=== PATIENT | male | born 1945 | race Caucasian/White ===

== ENCOUNTER 2018-10-09 06:21 | Inpatient (IN) | payer MEDICARE ==
[~2018-10-09] VITALS: Ht 177.8 cm; Wt 127.0 kg
--- NOTE | 2018-10-09 06:47 | EKG ---
[address] [address] Test Date: 2018-10-09 Test Time: 06:40:19 Pat Name: MIHAI SHAH Department: Room: Gender: M Supervisor Lending Activities: : 1945 Requested By: TREVOR KELLER Order Number: [id number] Reading MD: Measurements Intervals [place] Rate: 76 P: 63 UT: 206 QRS: 8 QRSD: 100 T: 29 QT: 376 QTc: 422 Interpretive Statements SINUS RHYTHM NORMAL ECG RI6.01 Unconfirmed report No previous ECG available for comparison
--- NOTE | 2018-10-09 06:51 | RAD ---
Examination: Single frontal view of the chest HISTORY: History of fall, shortness of breath FINDINGS: The cardiomediastinal silhouette grossly appears unremarkable. There is no acute infiltrate or visualized pneumothorax identified. IMPRESSION: No acute cardiopulmonary findings. Electronically signed by: Harry Leary MD (10/09/2018 6:47 AM) [facility]
[2018-10-09] MEDS ORDERED: IPRATRPIUM/ALBUTEROL 0.5/2.5MG 3 ML NEBU. NEB ONE (07:00)
--- NOTE | 2018-10-09 07:01 | PHYS DOC ---
Adult General Chief Complaint Chief Complaint: fall HPI HPI 73-year-old male presents via EMS for fall at home. The patient got up to go the restroom and was doing okay until he was on his way back to bed. He states that his legs "just gave out". Partially caught himself with his arms on the way down. He denies hitting his head or losing consciousness. Patient admits that he was feeling some increased shortness of breath prior to falling. The patient wears CPAP at night. He used to be a smoker and has been diagnosed with COPD. He only uses an albuterol inhaler PRN. When EMS arrived he was 94% on room air. His blood sugar was in the 180s. The patient's temperature however was greater than 101. The patient states that he has been feeling ill the past 2 days with a productive cough of yellowish sputum. He currently has some low back discomfort from the fall, but denies any other pain. Review of Systems Review of Systems Constitutional: Fever[] Eyes: Denies change in visual acuity, redness, or eye pain [] HENT: Denies nasal congestion or sore throat [] Respiratory: Productive cough with shortness of breath [] Cardiovascular: No additional information not addressed in HPI [] GI: Denies abdominal pain, nausea, vomiting, bloody stools or diarrhea [] : Denies dysuria or hematuria [] Musculoskeletal: Chronic back pain [] Integument: Denies rash or skin lesions [] Neurologic: Denies headache, focal weakness or sensory changes [] Endocrine: Denies polyuria or polydipsia [] All other systems were reviewed and found to be within normal limits, except as documented in this note. Physical Exam Physical Exam Constitutional: Well developed, well nourished, no acute distress, non-toxic appearance. [] HENT: Normocephalic, atraumatic, bilateral external ears normal, oropharynx moist, no oral exudates, nose normal. [] Eyes: PERRLA, EOMI, conjunctiva normal, no discharge. [] Neck: Normal range of motion, no tenderness, supple, no stridor. [] Cardiovascular:Heart rate regular rhythm, no murmur [] Lungs & Thorax: Bilateral breath sounds with expiratory wheezing. Right base diminished greater than left.[] Abdomen: Bowel sounds normal, soft, no tenderness, no masses, no pulsatile masses. [] Skin: Warm, dry, no erythema, no rash. [] Back: No tenderness, no CVA tenderness. [] Extremities: No tenderness, no cyanosis, no clubbing, ROM intact, no edema. [] Neurologic: Alert and oriented X 3, normal motor function, normal sensory function, no focal deficits noted. [] Psychologic: Affect normal, judgement normal, mood normal. [] EKG EKG Sinus rhythm, rate 76, normal axis, no ST elevations or depressions.[] Radiology/Procedures Radiology/Procedures [] Impressions: Exam performed: CT scan of the head without contrast. Date of Service: 10/09/2018. Comparison: None available Clinical History: Weakness and fall. Technique: Helical acquisitions are obtained from the foramen magnum to the vertex without intravenous administration of contrast. Findings: The ventricles are midline without evidence of dilatation. There is mild age-related atrophy. Normal amezcua-white differentiation is maintained. There is no extra axial fluid collection, intraparenchymal hemorrhage or mass lesion. The visualized portions of the orbits, paranasal sinuses and the mastoid air cells appear clear. The calvarium is intact. Impression: 1. No acute intracranial process detected. RS Compliance Statement: One or more of the following individualized dose reduction techniques were utilized for this examination: 1. Automated exposure control 2. Adjustment of the mA and/or kV according to patient size 3. Use of iterative reconstruction technique Electronically signed by: Jennifer Gomez MD (10/09/2018 8:48 AM) [facility] DICTATED AND SIGNED BY: JENNIFER GOMEZ MD DATE: 10/09/18 0847 CC: TREVOR KELLER DO; NON,STAFF ~ Examination: Single frontal view of the chest HISTORY: History of fall, shortness of breath FINDINGS: The cardiomediastinal silhouette grossly appears unremarkable. There is no acute infiltrate or visualized pneumothorax identified. IMPRESSION: No acute cardiopulmonary findings. Electronically signed by: Harry Leary MD (10/09/2018 6:47 AM) [facility] DICTATED AND SIGNED BY: HARRY LEARY MD DATE: 10/09/18 0645 CC: TREVOR KELLER DO; NON,STAFF Course & Med Decision Making Course & Med Decision Making Pertinent Labs and Imaging studies reviewed. (See chart for details) On arrival the patient's heart rate is 95, his blood pressure is 161/84, his O2 sat 96%, his respirations are 18. The patient has a white count of 19. His rapid flu is negative. His chest x-ray does not show pneumonia however I am still suspicious for pneumonia as the cause. The patient does meet sepsis criteria. I will order 2 g of Rocephin and 500 mg of azithromycin. Urinalysis is pending. Blood cultures and lactic acid were ordered. I have given him a DuoNeb treatment, 1L NS, 4 mg of morphine, and 4 mg of Zofran IV. A total of 2 L normal saline has been ordered. Lactic acid is 2.3. The patient has been having increased periods of poor memory as well as some episodes of arm weakness lately. Head CT was ordered. Head CT without contrast did not show any acute findings. Urinalysis is negative for infection. I will continue with my presumed diagnosis of early pneumonia. I have discussed the case with Dr. Valentine and he has accepted the patient for admission. Repeat lactic acid is pending. Greater than 35 minutes of critical care time was spent on this patient exclusive of other billable procedures. [] Dragon Disclaimer Dragon Disclaimer This electronic medical record was generated, in whole or in part, using a voice recognition dictation system. Departure Departure: Impression: Primary Impression: Sepsis due to pneumonia Additional Impressions: Community acquired bacterial pneumonia Fall Diabetes Lumbar back pain Disposition: ADMITTED INPATIENT Admitting Physician: Gonsalo Valentine Condition: STABLE Problem Qualifiers Additional Impressions: Fall Encounter type: initial encounter Qualified Codes: W19.XXXA - Unspecified fall, initial encounter Diabetes Diabetes mellitus type: type 2 Diabetes mellitus penitentiary insulin use: without predatory animal exterminator use Diabetes mellitus complication status: with kidney complications Diabetes mellitus complication detail: with chronic kidney disease Chronic kidney disease stage: stage 3 (moderate) Qualified Codes: E11.22 - Type 2 diabetes mellitus with diabetic chronic kidney disease; N18.3 - Chronic kidney disease, stage 3 (moderate) TREVOR KELLER DO Oct 09, 2018 07:01
[2018-10-09] MEDS ORDERED: ACETAMINOPHEN 500 MG TABLET PO ONE ×2 (07:09→07:15)
[2018-10-09 07:18] LABS: BASO # 0.1 x10^3/uL (0.0-0.2); BASO % 0 % (0-3); EOS % 0 % (0-3); HEMATOCRIT 41.4 % (39.0-53.0); LYMPH # 1.4 x10^3/uL (1.0-4.8); LYMPH % 7 % (24-48); MEAN CORPUSCULAR HEMOGLOBIN 30 pg (25-35); MEAN CORPUSCULAR HGB CONC 34 g/dL (31-37); MEAN CORPUSCULAR VOLUME 88 fL (79-100); MONO # 1.5 x10^3/uL (0.0-1.1); MONO % 8 % (0-9); NEUT % 84 % (31-73); PLATELET COUNT 133 x10^3/uL (140-400); RED CELL DISTRIBUTION WIDTH 14.3 % (11.5-14.5)
[2018-10-09 07:32] LABS: INFLUENZA A PATIENT NEGATIVE (NEGATIVE); INFLUENZA B PATIENT NEGATIVE (NEGATIVE)
[2018-10-09] MEDS ORDERED: IV NORMAL SALINE 1,000ML 1,000 ML IV ONE ×2 (07:45→08:00)
[2018-10-09 07:47] LABS: ALBUMIN 3.6 g/dL (3.4-5.0); ALBUMIN/GLOBULIN RATIO 0.9 (1.0-1.7); CREATININE 1.7 mg/dL (0.7-1.3); GFR 39.5; POTASSIUM 3.8 mmol/L (3.5-5.1); TOTAL BILIRUBIN 0.9 mg/dL (0.2-1.0); TOTAL PROTEIN 7.5 g/dL (6.4-8.2)
[2018-10-09] MEDS ORDERED: IV NORMAL SALINE 250ML 250 ML ONE (07:58)
[2018-10-09] MEDS ORDERED: AZITHROMYCIN 500 MG VIAL. IV ONE (07:58)
[2018-10-09] MEDS ORDERED: IV NORMAL SALINE 100ML 100 ML ONE (07:58)
[2018-10-09 08:00] LABS: % BANDS 16 % (0-9); % BASOS 0 % (0-3); % EOS 0 % (0-5); % LYMPHS 8 % (24-48); % MONOS 6 % (0-10); % SEGS 70 % (35-66); PLATELET CLUMP PRESENT; PLT ESTIMATE DECREASED (ADEQUATE); TOXIC VACUOLATION PRESENT
[2018-10-09] MEDS ORDERED: ONDANSETRON PF 4 MG/2 ML VIAL. IV ONE (08:00)
[2018-10-09] MEDS ORDERED: MORPHINE SULFATE 4 MG/ML DISP.SYRIN. IV ONE (08:00)
[2018-10-09] MEDS ORDERED: AZITHROMYCIN 500 MG in IV NORMAL SALINE 250ML 250 ML IV ONE (08:00)
--- NOTE | 2018-10-09 08:52 | RAD ---
Exam performed: CT scan of the head without contrast. Date of Service: 10/09/2018. Comparison: None available Clinical History: Weakness and fall. Technique: Helical acquisitions are obtained from the foramen magnum to the vertex without intravenous administration of contrast. Findings: The ventricles are midline without evidence of dilatation. There is mild age-related atrophy. Normal amezcua-white differentiation is maintained. There is no extra axial fluid collection, intraparenchymal hemorrhage or mass lesion. The visualized portions of the orbits, paranasal sinuses and the mastoid air cells appear clear. The calvarium is intact. Impression: 1. No acute intracranial process detected. PQRS Compliance Statement: One or more of the following individualized dose reduction techniques were utilized for this examination: 1. Automated exposure control 2. Adjustment of the mA and/or kV according to patient size 3. Use of iterative reconstruction technique Electronically signed by: Jennifer Gomez MD (10/09/2018 8:48 AM) [facility]
[2018-10-09 09:00] LABS: CLARITY,URINE CLEAR; COLOR,URINE AMBER
[2018-10-09 09:01] LABS: BACTERIA,URINE 0 /HPF (0-FEW); BILIRUBIN,URINE NEG (NEG); GLUCOSE,URINE 100 mg/dL (NEG); NITRITE,URINE NEG (NEG); RBC,URINE 0 /HPF (0-2); UROBILINOGEN,URINE 1 mg/dL (0.2 mg/dL); WBC,URINE OCC /HPF (0-4)
[2018-10-09] MEDS ORDERED: HYDROmorphone PF 1 MG/ML DISP.SYRIN IV ONE (09:15)
[2018-10-09] MEDS ORDERED: HYDROmorphone PF 1 MG/ML DISP.SYRIN IV PRN (09:30)
[2018-10-09] MEDS ORDERED: ONDANSETRON PF 4 MG/2 ML VIAL. IV PRN (09:30)
[2018-10-09] MEDS: IPRATRPIUM/ALBUTEROL 0.5/2.5MG 3 ML NEBU. NEB SCH ×3 (10:29→20:41)
[2018-10-09] MEDS ORDERED: CLOT15CR5 TP (10:52)
[2018-10-09] MEDS ORDERED: TRAZ-86 PO (10:52)
[2018-10-09] MEDS ORDERED: CYAN10005 PO (10:52)
[2018-10-09] MEDS ORDERED: CETI10TA16 PO (10:52)
[2018-10-09] MEDS ORDERED: AMLO10TA6 PO (10:52)
[2018-10-09] MEDS ORDERED: FISH12002 PO (10:52)
[2018-10-09] MEDS ORDERED: CHOL10003 PO (10:52)
[2018-10-09] MEDS ORDERED: ASPI-630 PO (10:52)
[2018-10-09] MEDS ORDERED: TRAZ-85 PO (10:52)
[2018-10-09] MEDS ORDERED: GABA600T2 PO (10:52)
[2018-10-09] MEDS ORDERED: DONE10TA7 PO (10:52)
[2018-10-09] MEDS ORDERED: SIMV20TA3 PO (10:52)
[2018-10-09] MEDS ORDERED: INSU100I13 SQ (10:56)
[2018-10-09] MEDS ORDERED: LISI1TAB7 PO (11:03)
[2018-10-09 11:13] VITALS: BP 151/81
[2018-10-09] MEDS ORDERED: DEXTROSE 50% 25 GM / 50ML DISP.SYRIN. IV PRN (11:15)
[2018-10-09] MEDS: INSULIN LISPRO 300 UNITS/3 ML INSULN.PEN. SQ SCH ×2 (12:00→17:00)
[2018-10-09 13:30] LABS: BGAS PH 7.42 (7.35-7.46)
[2018-10-09] MEDS ORDERED: traZODone 50 MG TABLET. PO PRN (13:30)
[2018-10-09] MEDS: amLODIPine BESYLATE 10 MG TABLET PO SCH (13:31)
[2018-10-09] MEDS: SIMVASTATIN 20 MG TABLET PO SCH (13:31)
[2018-10-09] MEDS: ASPIRIN 81 MG TAB.CHEW PO SCH (13:31)
[2018-10-09] MEDS: CHOLECALCIFEROL (VITAMIN D3) 1,000 UNIT TABLET PO SCH (13:32)
[2018-10-09] MEDS: DONEPEZIL HCL 10 MG TABLET PO SCH (13:32)
[2018-10-09] MEDS: CETIRIZINE HCL 10 MG TABLET PO SCH (13:32)
[2018-10-09] MEDS: CYANOCOBALAMIN (VITAMIN B-12) 1,000 MCG TABLET. PO SCH (13:32)
[2018-10-09] MEDS ORDERED: ALBUTEROL SULFATE 2.5 MG/3 ML NEBU. NEB PRN (13:45)
[2018-10-09] MEDS: LISINOPRIL 20 MG TABLET PO SCH (14:00)
[2018-10-09] MEDS: hydroCHLOROthiazide 25 MG TABLET PO SCH (14:00)
[2018-10-09 17:51] VITALS: BP 156/74
[2018-10-09 20:02] VITALS: BP 152/67
[2018-10-09] MEDS: OMEGA-3 FATTY ACIDS/FISH OIL 1,000 MG CAPSULE. PO SCH (20:07)
[2018-10-09] MEDS: GABAPENTIN 300 MG CAPSULE. PO SCH (20:07)
[2018-10-09] MEDS: traZODone 100 MG TABLET. PO SCH (20:07)
[2018-10-09] MEDS: CLOTRIMAZOLE/BETAMETH 1%-0.05% TOPICAL CREAM 15GM TUBE. TP SCH (20:08)
[2018-10-09] MEDS: INSULIN GLARGINE 300 UNITS/3 ML INSULN.PEN. SQ SCH ×2 (20:13→21:00)
[2018-10-09 22:44] VITALS: BP 169/81
--- NOTE | 2018-10-10 01:16 | HP ---
ADMIT DATE: 10/09/2018 HISTORY OF PRESENT ILLNESS: The patient is a 73-year-old male patient who was brought to the Emergency Room by emergency medical service personnel after he fell at home, he got up to the restroom and was doing okay until he was on his way back to the bed and he stated that his legs just gave out, but he partially caught himself with his arms on the way down. He denied hitting his head or losing consciousness. The patient admits that he was not feeling well with increasing shortness of breath. He has also had a fever up to 101. His said that he gets the bronchitis every year and he also complained of having cough that was brownish and yellowish in color. He did complain of some low back discomfort from the fall, but denies any other pain. He was extensively investigated in the Emergency Room. He has had a CT scan of the head, which showed no intracranial process detected. His chest x-ray showed no acute cardiopulmonary finding; however, he was found to have a lactic acidosis and leukocytosis with a white cell count of 19,000 and therefore, the patient was admitted with diagnoses of probably acute bronchitis versus community-acquired pneumonia as well as COPD exacerbation. PAST MEDICAL HISTORY: Significant for COPD; morbid obesity; obstructive sleep apnea, on CPAP; type 2 diabetes, hypertension, hyperlipidemia, chronic kidney disease stage 3. He is known to have gout. He has also severe sensorineural deafness, for which he has also hearing aids. PAST SURGICAL HISTORY: Significant for bilateral cataract extraction, cholecystectomy, rotator cuff tear repair on both sides. He has ganglion cyst removing from his left wrist. He has also hernia repair, esophagogastroduodenoscopy, and colonoscopy. ALLERGIES: He has no known drug allergies. MEDICATIONS: He is currently on following medications: He is on cetirizine 10 mg once a day, Aricept 10 mg once a day, simvastatin 20 mg at bedtime, amlodipine 10 mg daily. He is on lisinopril/hydrochlorothiazide 20/25 two tablets daily, aspirin 81 mg once a day, gabapentin 600 mg p.o. at bedtime, trazodone 100 mg p.o. at bedtime, trazodone 50 mg p.r.n. for insomnia. He is on Lantus 90 units subcutaneously twice a day, clotrimazole for betamethasone apply topically twice a day. He is on cyanocobalamin 1000 mcg tablet daily. He is on cholecalciferol 1000 international unit once a day, and fish oil for omega 3 fatty acids 1200 mg twice a day. FAMILY HISTORY: He has 1 brother and 1 sister. His brother is older and has diabetes and heart problems. His sister apparently is healthy. His father in his 80s because of myocardial infarction. Mother in her 90s because of Alzheimer disease. SOCIAL HISTORY: He is , has 1 daughter. He quit smoking 30 years ago. He drinks alcohol occasionally. 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 REVIEW OF SYSTEMS: The patient has bilateral cataract extraction, but denied any glaucoma or macular degeneration. Denied any earache or tinnitus, but he is known to have sensorineural deafness. He has bilateral hearing aid. Denied any stuffy nose, nosebleed, or postnasal drip. Denied any sore throat, sore tongue, toothache, hoarseness of voice, or difficulty swallowing. He denied any nausea, vomiting, diarrhea, or constipation. Denied any hematemesis, melena, or hematochezia. Denied any dysuria, frequency, or hematuria. Denied any chest pain. He did complain of shortness of breath with cough with a yellowish to brownish sputum. He did complain of fever and his said that he was having shaking chills. Denied any dizziness, lightheadedness, or vertigo. Denied any palpitation. PHYSICAL EXAMINATION: GENERAL: When arrival to the Emergency Room, the patient looked well and was clearly in no apparent respiratory distress. There is no pallor, jaundice, cyanosis, or thyromegaly. No jugular venous distension. No lower limb edema. VITAL SIGNS: His heart rate was 74, blood pressure was 178/69, temperature was 99, respiratory rate was 20, and oxygen saturation was 95% on room air. HEAD, EYES, EARS, NOSE AND THROAT: Showed normocephalic, atraumatic. NECK: Supple. HEART: Showed normal first and second heart sounds. No gallop, rub, or murmur. CHEST: Shows central trachea, equal bilateral expansion, air entry, scattered rhonchi. I could not really appreciate any crepitation. ABDOMEN: Distended, soft, nontender. No guarding or rigidity. No organomegaly. All hernial orifices intact. The bowel sounds normal. NEUROLOGIC: He was awake, alert, responding appropriately. All cranial nerves are intact. He moves extremities without difficulty. He ambulates with a cane at home. LABORATORY DATA AND IMAGING: His lab work on arrival showed a white cell count of 19,000, hemoglobin 14, hematocrit 41, MCV 88 and platelet count of 133,000. His serum sodium was 136, potassium 3.8, chloride 99, bicarbonate 26, anion gap of 11, BUN 22, creatinine 1.7, estimated GFR was 39 mL per minute. His glucose was ____, calcium was 9. Total bilirubin, AST, ALT, alkaline phosphatase were normal. Total protein was 7.5, albumin was 3.6. His urinalysis showed the urine was paco, clear with a pH of 6.5, specific gravity of 1.025. There was small amount of protein, small amount of glucose, trace of ketones, large amount of blood, negative for nitrite and leukocyte esterase, 0 rbc's, occasional wbc's, and no bacteria. His influenza A and B were negative. He apparently had a CT scan of the head that showed the ventricles are midline without evidence of dilatation. There is mild age-related atrophy. Normal amezcua-white differentiation is maintained. There is no extraaxial fluid collection, intraparenchymal hemorrhage, or mass lesion. The visualized portion of the orbits, paranasal sinuses and mastoid air cells appears clear. The calvarium is intact. No acute intracranial process detected. His chest x-ray showed that the cardiomediastinal silhouette grossly appears unremarkable. There is no acute infiltrate or visualized pneumothorax identified. ASSESSMENT AND PLAN: In summary, this is a 73-year-old male patient who is known to have chronic obstructive pulmonary disease with morbid obesity, and obstructive sleep apnea who came in with a fall. He has also had fever, shaking chills, cough with yellowish sputum, and was admitted with acute bronchitis/acute community-acquired pneumonia. He is now on IV Rocephin and Zithromax. We will continue with all his other medications. Continue with IV antibiotic. I will check his blood gases to make sure that he is not retaining carbon dioxide and we will decide further management accordingly. MAGY LAGUNAS MD DR: Andres JOB#: [id number] / [id number]
[2018-10-10 05:16] VITALS: BP 133/72
[2018-10-10] MEDS: ACETAMINOPHEN 500 MG TABLET PO PRN ×2 (05:16→15:12)
[2018-10-10] MEDS: IPRATRPIUM/ALBUTEROL 0.5/2.5MG 3 ML NEBU. NEB SCH ×4 (05:46→20:12)
[2018-10-10 07:05] LABS: BASO # 0.1 x10^3/uL (0.0-0.2); BASO % 1 % (0-3); EOS % 0 % (0-3); HEMATOCRIT 38.9 % (39.0-53.0); HEMOGLOBIN 13.2 g/dL (13.0-17.5); LYMPH # 2.2 x10^3/uL (1.0-4.8); LYMPH % 17 % (24-48); MEAN CORPUSCULAR HEMOGLOBIN 30 pg (25-35); MEAN CORPUSCULAR HGB CONC 34 g/dL (31-37); MEAN CORPUSCULAR VOLUME 89 fL (79-100); MONO % 8 % (0-9); NEUT % 75 % (31-73); PLATELET COUNT 126 x10^3/uL (140-400); RED BLOOD COUNT 4.37 x10^6/uL (4.30-5.70); RED CELL DISTRIBUTION WIDTH 14.8 % (11.5-14.5); WHITE BLOOD COUNT 13.4 x10^3/uL (4.0-11.0)
[2018-10-10 07:22] LABS: ALBUMIN/GLOBULIN RATIO 0.7 (1.0-1.7); CALCIUM 8.7 mg/dL (8.5-10.1); CREATININE 1.7 mg/dL (0.7-1.3); GFR 39.5; POTASSIUM 3.5 mmol/L (3.5-5.1); TOTAL BILIRUBIN 0.6 mg/dL (0.2-1.0); TOTAL PROTEIN 7.1 g/dL (6.4-8.2)
[2018-10-10] MEDS: INSULIN LISPRO 300 UNITS/3 ML INSULN.PEN. SQ SCH ×3 (08:00→17:00)
[2018-10-10] MEDS: SIMVASTATIN 20 MG TABLET PO SCH (09:11)
[2018-10-10] MEDS: amLODIPine BESYLATE 10 MG TABLET PO SCH (09:12)
[2018-10-10] MEDS: LISINOPRIL 20 MG TABLET PO SCH (09:12)
[2018-10-10] MEDS: CETIRIZINE HCL 10 MG TABLET PO SCH (09:13)
[2018-10-10] MEDS: DONEPEZIL HCL 10 MG TABLET PO SCH (09:13)
[2018-10-10] MEDS: OMEGA-3 FATTY ACIDS/FISH OIL 1,000 MG CAPSULE. PO SCH ×2 (09:14→23:52)
[2018-10-10] MEDS: CYANOCOBALAMIN (VITAMIN B-12) 1,000 MCG TABLET. PO SCH (09:15)
[2018-10-10] MEDS: ASPIRIN 81 MG TAB.CHEW PO SCH (09:15)
[2018-10-10] MEDS: CHOLECALCIFEROL (VITAMIN D3) 1,000 UNIT TABLET PO SCH (09:15)
[2018-10-10] MEDS: hydroCHLOROthiazide 25 MG TABLET PO SCH (09:15)
[2018-10-10] MEDS: CLOTRIMAZOLE/BETAMETH 1%-0.05% TOPICAL CREAM 15GM TUBE. TP SCH ×2 (09:16→21:00)
[2018-10-10] MEDS: INSULIN GLARGINE 300 UNITS/3 ML INSULN.PEN. SQ SCH (09:20)
[2018-10-10 11:21] VITALS: BP 149/77
[2018-10-10 15:17] VITALS: BP 144/70
[2018-10-10] MEDS ORDERED: AZITHROMYCIN 500 MG in IV NORMAL SALINE 250ML 250 ML IV ONE (16:00)
[2018-10-10] MEDS: ENOXAPARIN 40 MG/0.4 ML SYRINGE. SQ SCH (16:02)
--- NOTE | 2018-10-10 18:06 | PN ---
DATE: 10/10/2018 SUBJECTIVE: The patient is resting, slightly propped up in bed, in no apparent respiratory distress. He continued to have cough that is productive of a thick whitish sputum. He did spike a temperature up to 102.3 and we did send sputum as well as blood for culture and sensitivity, the result of which is still pending at the time of this dictation. His chest x-ray did not show any acute cardiopulmonary finding. However, we continued him on IV antibiotics, IV steroids, continued on inhalers. PHYSICAL EXAMINATION: GENERAL: When I examined him this afternoon, he looked well and was clearly in no apparent respiratory distress. No pallor, jaundice, cyanosis, or thyromegaly. No jugular venous distension. No lower limb edema. VITAL SIGNS: His heart rate was 74, blood pressure 149/77, temperature was 98.6, respiratory rate was 22, and oxygen saturation was 95% on room air. HEAD, EYES, EARS, NOSE AND THROAT: Normocephalic, atraumatic. NECK: Supple. HEART: Showed normal first and second heart sounds. No gallop, rub, or murmur. CHEST: Shows central trachea, equally reduced expansion, reduced air entry, vesicular breath sounds. I could not appreciate any crepitation or rhonchi. ABDOMEN: Distended, soft, nontender. NEUROLOGIC: He is awake, alert, responding appropriately. All his cranial nerves are intact. He moves his extremities without difficulty. However, the patient is very weak and unable to ambulate. His intake was 2750, output was 1000. LABORATORY DATA: His lab work this morning showed the white cell count is down to 13,400, hemoglobin 13, hematocrit 39, MCV 89 and platelet count of 126,000. His chemistry showed a serum sodium 137, potassium 3.5, chloride 102, bicarbonate 24, anion gap of 11, BUN 22, creatinine 1.7, estimated GFR was 39 mL per minute. Glucose was 174, calcium was 8.7. Total bilirubin, AST, ALT, alkaline phosphatase were normal. Total protein was 7.1, albumin 3. His blood gases showed a pH of 7.42, pCO2 of 37, pO2 of 96, bicarbonate 24, and oxygen saturation was 98% on FiO2 28%. His influenza A and B were negative. Urinalysis was essentially unremarkable. ASSESSMENT: The patient was admitted with acute bronchitis, acute community-acquired pneumonia, chronic obstructive pulmonary disease exacerbation. He has also morbid obesity, obstructive sleep apnea. Other medical problems include type 2 diabetes, hypertension, hyperlipidemia, chronic kidney disease. He is also known to have gout and severe sensorineural deafness, for which he also uses hearing aids. PLAN: My plan is to continue with IV Rocephin, IV Zithromax and I will add also Solu-Medrol and we will start him also on IV Lovenox for DVT prophylaxis and get also PT and OT. MAGY LAGUNAS MD DR: JOSE/valdez JOB#: [id number] / [id number]
--- NOTE | 2018-10-10 18:10 | EKG ---
[address] [address] Test Date: 2018-10-09 Test Time: 06:40:19 Pat Name: MIHAI SHAH Department: Room: 123 A Gender: M Shake Table Operator: : 1945 Requested By: MAGY LAGUNAS Order Number: [id number] Reading MD: Measurements Intervals [place] Rate: 76 P: 63 [place]: 206 QRS: 8 QRSD: 100 T: 29 QT: 376 QTc: 422 Interpretive Statements SINUS RHYTHM NORMAL ECG RI6.01 Unconfirmed report No previous ECG available for comparison
[2018-10-10 19:52] VITALS: BP 116/67
[2018-10-10 23:14] VITALS: BP 119/61
[2018-10-10] MEDS: methylPREDNISolone SOD SUCC PF 40 MG/ML VIAL. IV SCH (23:52)
[2018-10-10] MEDS: GABAPENTIN 300 MG CAPSULE. PO SCH (23:52)
[2018-10-10] MEDS: traZODone 100 MG TABLET. PO SCH (23:53)
[2018-10-10] MEDS: LACTOBACILLUS RHAMNOSUS GG 1 CAPSULE. PO SCH (23:53)
[2018-10-10] MEDS: MONTELUKAST 10 MG TABLET. PO SCH (23:53)
[2018-10-11] MEDS: INSULIN GLARGINE 300 UNITS/3 ML INSULN.PEN. SQ SCH ×3 (00:02→21:08)
[2018-10-11 05:11] VITALS: BP 127/58
[2018-10-11] MEDS: IPRATRPIUM/ALBUTEROL 0.5/2.5MG 3 ML NEBU. NEB SCH ×4 (05:33→19:55)
[2018-10-11 06:58] LABS: BASO % 0 % (0-3); EOS % 0 % (0-3); HEMOGLOBIN 12.9 g/dL (13.0-17.5); LYMPH # 1.4 x10^3/uL (1.0-4.8); LYMPH % 14 % (24-48); MEAN CORPUSCULAR HEMOGLOBIN 30 pg (25-35); MEAN CORPUSCULAR HGB CONC 34 g/dL (31-37); MEAN CORPUSCULAR VOLUME 90 fL (79-100); MONO # 0.3 x10^3/uL (0.0-1.1); MONO % 3 % (0-9); NEUT # 8.2 x10^3uL (1.8-7.7); NEUT % 83 % (31-73); PLATELET COUNT 127 x10^3/uL (140-400); RED BLOOD COUNT 4.23 x10^6/uL (4.30-5.70); RED CELL DISTRIBUTION WIDTH 14.4 % (11.5-14.5); WHITE BLOOD COUNT 9.9 x10^3/uL (4.0-11.0)
[2018-10-11 07:27] LABS: ALBUMIN 2.7 g/dL (3.4-5.0); ALBUMIN/GLOBULIN RATIO 0.6 (1.0-1.7); CALCIUM 8.7 mg/dL (8.5-10.1); GFR 32.7; TOTAL BILIRUBIN 0.6 mg/dL (0.2-1.0); TOTAL PROTEIN 7.1 g/dL (6.4-8.2)
[2018-10-11] MEDS: CETIRIZINE HCL 10 MG TABLET PO SCH (07:50)
[2018-10-11] MEDS: amLODIPine BESYLATE 10 MG TABLET PO SCH (07:50)
[2018-10-11] MEDS: hydroCHLOROthiazide 25 MG TABLET PO SCH (07:50)
[2018-10-11] MEDS: methylPREDNISolone SOD SUCC PF 40 MG/ML VIAL. IV SCH ×2 (07:50→23:30)
[2018-10-11] MEDS: LACTOBACILLUS RHAMNOSUS GG 1 CAPSULE. PO SCH ×2 (07:50→20:54)
[2018-10-11] MEDS: ASPIRIN 81 MG TAB.CHEW PO SCH (07:50)
[2018-10-11] MEDS: CYANOCOBALAMIN (VITAMIN B-12) 1,000 MCG TABLET. PO SCH (07:51)
[2018-10-11] MEDS: OMEGA-3 FATTY ACIDS/FISH OIL 1,000 MG CAPSULE. PO SCH ×2 (07:51→20:54)
[2018-10-11] MEDS: DONEPEZIL HCL 10 MG TABLET PO SCH (07:51)
[2018-10-11] MEDS: LISINOPRIL 20 MG TABLET PO SCH (07:51)
[2018-10-11] MEDS: SIMVASTATIN 20 MG TABLET PO SCH (07:52)
[2018-10-11] MEDS: CLOTRIMAZOLE/BETAMETH 1%-0.05% TOPICAL CREAM 15GM TUBE. TP SCH ×2 (07:52→20:50)
[2018-10-11] MEDS: CHOLECALCIFEROL (VITAMIN D3) 1,000 UNIT TABLET PO SCH (07:52)
[2018-10-11] MEDS: INSULIN LISPRO 300 UNITS/3 ML INSULN.PEN. SQ SCH ×3 (07:54→17:21)
[2018-10-11 11:06] VITALS: BP 111/62
[2018-10-11] MEDS: ENOXAPARIN 40 MG/0.4 ML SYRINGE. SQ SCH (15:15)
[2018-10-11 16:10] VITALS: BP 130/67
--- NOTE | 2018-10-11 19:09 | PN ---
DATE: 10/11/2018 SUBJECTIVE: The patient is resting, slightly propped up in bed, no apparent distress. He is definitely more awake, alert, said that he is feeling much better and he has been up and about, walked with physical therapy, continued to have cough and some shortness of breath. OBJECTIVE: GENERAL: When I examined him, he looked slightly pale, but no jaundice, cyanosis, or thyromegaly. No jugular venous distension. No limb edema. VITAL SIGNS: His heart rate was 68, blood pressure was 111/62, temperature was 97.7, respiratory rate 22, and oxygen saturation was 94%. HEAD, EYES, EARS, NOSE, AND THROAT: Normocephalic, atraumatic. NECK: Supple. HEART: Showed normal first and second sounds. No gallop, rub, or murmur. CHEST: Clear to auscultation. No crepitation or rhonchi. ABDOMEN: Distended, soft, nontender. NEUROLOGIC: He is definitely more awake, alert, responding appropriately. Cranial nerves intact. He moves extremities without difficulty. His intake over the last 24 hours was 2750, output was 1000. LABORATORY DATA: As of this morning showed a white cell count 9900, hemoglobin 13, hematocrit 38, MCV 90, and platelet count of 127,000. Serum sodium 135, potassium 4, chloride 100, bicarbonate 27, anion gap of 8, BUN 27, creatinine 2, estimated GFR was mL per minute. His glucose 169, calcium was 8.7. Total bilirubin, AST, ALT, alkaline phosphatase were normal. Total protein was 7.1, albumin 2.7. Urinalysis is unremarkable. His influenza A and B were negative. His sputum culture has so far showed few gram-positive rods and rare gram-negative rods. His blood culture is so far negative. ASSESSMENT: 1. Acute bronchitis versus community-acquired pneumonia. 2. Chronic obstructive pulmonary disease exacerbation. 3. Morbid obesity, obstructive sleep apnea. 4, Other medical problems include; A. Type 2 diabetes. B. Hypertension. C. Hyperlipidemia. D. Chronic kidney disease. He also known to have gout and severe sensorineural deafness. PLAN: My plan is to continue with IV Rocephin and Zithromax. Continue with Lovenox for DVT prophylaxis. Continue with PT, OT. I will add Flomax and we will hopefully attempt to remove the Conrad catheter tomorrow. MAGY LAGUNAS MD DR: JOSE/valdez JOB#: [id number] / [id number]
[2018-10-11] MEDS: traZODone 100 MG TABLET. PO SCH (20:54)
[2018-10-11] MEDS: GABAPENTIN 300 MG CAPSULE. PO SCH (20:55)
[2018-10-11] MEDS: MONTELUKAST 10 MG TABLET. PO SCH (20:55)
[2018-10-11] MEDS ORDERED: TAMSULOSIN 0.4 MG CAP.ER.24H. PO SCH (21:00)
[2018-10-11 21:09] VITALS: BP 124/63
[2018-10-11 23:11] VITALS: BP 122/60
[2018-10-12] MEDS: IPRATRPIUM/ALBUTEROL 0.5/2.5MG 3 ML NEBU. NEB SCH ×2 (05:12→09:25)
[2018-10-12 05:32] VITALS: BP 126/78
[2018-10-12 07:16] LABS: CALCIUM 8.8 mg/dL (8.5-10.1); CREATININE 1.8 mg/dL (0.7-1.3); POTASSIUM 4.1 mmol/L (3.5-5.1)
[2018-10-12] MEDS: LISINOPRIL 20 MG TABLET PO SCH (08:41)
[2018-10-12] MEDS: OMEGA-3 FATTY ACIDS/FISH OIL 1,000 MG CAPSULE. PO SCH (08:41)
[2018-10-12] MEDS: hydroCHLOROthiazide 25 MG TABLET PO SCH (08:41)
[2018-10-12] MEDS: LACTOBACILLUS RHAMNOSUS GG 1 CAPSULE. PO SCH (08:41)
[2018-10-12] MEDS: CETIRIZINE HCL 10 MG TABLET PO SCH (08:42)
[2018-10-12] MEDS: CHOLECALCIFEROL (VITAMIN D3) 1,000 UNIT TABLET PO SCH (08:42)
[2018-10-12] MEDS: DONEPEZIL HCL 10 MG TABLET PO SCH (08:42)
[2018-10-12] MEDS: ASPIRIN 81 MG TAB.CHEW PO SCH (08:42)
[2018-10-12] MEDS: CYANOCOBALAMIN (VITAMIN B-12) 1,000 MCG TABLET. PO SCH (08:42)
[2018-10-12] MEDS: SIMVASTATIN 20 MG TABLET PO SCH (08:42)
[2018-10-12] MEDS: methylPREDNISolone SOD SUCC PF 40 MG/ML VIAL. IV SCH (08:43)
[2018-10-12] MEDS: amLODIPine BESYLATE 10 MG TABLET PO SCH (08:43)
[2018-10-12] MEDS: INSULIN LISPRO 300 UNITS/3 ML INSULN.PEN. SQ SCH ×2 (08:54→12:18)
[2018-10-12] MEDS: INSULIN GLARGINE 300 UNITS/3 ML INSULN.PEN. SQ SCH (08:56)
[2018-10-12] MEDS: CLOTRIMAZOLE/BETAMETH 1%-0.05% TOPICAL CREAM 15GM TUBE. TP SCH (08:56)
[2018-10-12 10:55] VITALS: BP 123/65
[2018-10-12] MEDS ORDERED: BENZOCAINE/MENTHOL LOZNGE 18'S BOX. PO PRN (11:30)
[2018-10-12] MEDS ORDERED: IPRA3AMP29 NEB (13:37)
[2018-10-12] MEDS ORDERED: CEFP200T PO (13:37)
[2018-10-12] MEDS ORDERED: PRED20TA PO (13:37)
[2018-10-12] MEDS ORDERED: TAMS0.4C97 PO (13:37)
--- NOTE | 2018-10-12 15:15 | DS ---
DATE OF DISCHARGE: 10/12/2018 HOSPITAL COURSE: The patient is a 73-year-old male patient who was admitted originally on 10/09/2018 with a fall at home with being very weak. He fell actually twice at home without losing any consciousness or hitting his head; however, on further questioning him, he admits that he has been increasing shortness of breath, has fever up to 101. His said that he develops acute bronchitis every year, also complained of having cough that was probably yellowish in color. Did complain of some low back discomfort from the fall, but denies any other pain. He was extensively investigated and had a CT scan of the head, which showed intracranial process detected. Chest x-ray showed no acute cardiopulmonary, however, he was found to have lactic acidosis, leukocytosis with a white cell count of 19,000. Therefore, the patient was admitted to diagnose probably acute bronchitis versus community-acquired pneumonia as well as COPD exacerbation. We did start him on IV antibiotic, Solu-Medrol and bronchodilators. The patient did actually extremely well. He has had no more cough or shortness of breath. He is definitely more awake, alert, was seen by the physical therapist and has been up and about and today, he said he expresses a desire to go home. PHYSICAL EXAMINATION: GENERAL: When I saw him, he was sitting comfortably in his chair, in no apparent respiratory distress. Awake, alert. Denied any complaint. The nursing staff stated that he did very well. Physical Therapy actually worked with him and has been up and about walking without assistance or assistive devices. When I examined him, he looked well and was clearly in no apparent respiratory distress. No pallor, jaundice, cyanosis, or thyromegaly. No jugular venous distension. No limb edema. VITAL SIGNS: His heart rate was 68, blood pressure was 111/62, temperature was 97.7, respiratory rate 22 and oxygen saturation was 98% on room air. HEAD, EYES, EARS, NOSE AND THROAT: Normocephalic, atraumatic. NECK: Supple. HEART: Showed normal first and second sounds. No gallop or murmur. CHEST: Clear to auscultation. No crepitation or rhonchi. ABDOMEN: Distended, soft, nontender. No guarding or rigidity. No organomegaly. All hernial orifice intact. Bowel sounds normal. NEUROLOGIC: He was awake, alert, responding appropriately. All cranial nerves are intact. He moves extremities without difficulty. He ambulates without assistance or assistive devices. LABORATORY DATA: His lab work this morning showed serum sodium 136, potassium 4.1, chloride 100, bicarbonate 24, anion gap of 12, BUN 38, creatinine 1.8, estimated GFR was 37 mL per minute. His glucose was 123, calcium was 8.8. His white cell count was 9900, hemoglobin 13, hematocrit 38, MCV 90, and platelet count of 127,000. Urinalysis was unremarkable. His influenza A and B were negative. DISCHARGE MEDICATIONS: He will be discharged home to continue on Vantin 200 mg twice a day for 5 more days, DuoNeb 0.5/2.5 mg in 3 mL by nebulizer 4 times a day, prednisone in a tapering course fashion as prescribed and Flomax 0.4 mg at bedtime. He will also be discharged on amlodipine 10 mg once a day, aspirin 81 mg once a day, cetirizine 10 mg once a day, vitamin D3 1000 international units once a day, clotrimazole-betamethasone cream one application twice a day, cyanocobalamin for vitamin B12 1000 mcg once a day, Aricept 10 mg once a day, omega-3 fatty acid 1200 mg twice a day, gabapentin 600 mg at bedtime, Lantus insulin 90 units subcutaneously twice a day, lisinopril/hydrochlorothiazide 20/25 two tablets once a day, simvastatin 20 mg at bedtime, trazodone 100 mg at bedtime. FINAL DISCHARGE DIAGNOSES: 1. Acute bronchitis versus community-acquired pneumonia. 2. Chronic obstructive pulmonary disease exacerbation. 3. Morbid obesity or obstructive sleep apnea. 4. Type 2 diabetes mellitus. 5. Hypertension. 6. Hyperlipidemia. 7. Chronic kidney disease. 8. Severe sensorineural deafness. MAGY LAGUNAS MD DR: JOSE/valdez JOB#: [id number] / [id number]
== END 2018-10-12 14:30 | disposition home or self-care (01) | DRG 871 ==
LOC: ER 06:21 → 1 SOUTH 09:32
PROVIDERS: ADMIT Internal Medicine; ATTEND Internal Medicine
DX: A41.9 Sepsis, unspecified organism (principal); J15.9 Unspecified bacterial pneumonia; J44.0 Chronic obstructive pulmonary disease with (acute) lower respiratory infection; J44.1 Chronic obstructive pulmonary disease with (acute) exacerbation; E11.22 Type 2 diabetes mellitus with diabetic chronic kidney disease; E66.01 Morbid (severe) obesity due to excess calories; E78.5 Hyperlipidemia, unspecified; G47.33 Obstructive sleep apnea (adult) (pediatric); I12.9 Hypertensive chronic kidney disease with stage 1 through stage 4 chronic kidney disease, or unspecified chronic kidney disease; J20.9 Acute bronchitis, unspecified; M10.9 Gout, unspecified; N18.3 Chronic kidney disease, stage 3 (moderate); W18.39XA Other fall on same level, initial encounter; Z82.0 Family history of epilepsy and other diseases of the nervous system; Z82.49 Family history of ischemic heart disease and other diseases of the circulatory system; Z83.3 Family history of diabetes mellitus; Z87.891 Personal history of nicotine dependence; Z98.41 Cataract extraction status, right eye; Z98.42 Cataract extraction status, left eye; Y93.89 Activity, other specified; Y92.098 Other place in other non-institutional residence as the place of occurrence of the external cause; Y99.8 Other external cause status; H90.5 Unspecified sensorineural hearing loss
CPT/HCPCS: 36415; 70450; 71045; 80048; 80053; 81001; 82803; 82947; 83605; 83880; 84484; 85007; 85025; 87040; 87070; 87205; 87804; 93005; 94640; 96365; 96366; 96368; 96375; J0456; J0696; J1170; J1650; J1815; J2270; J2405; J2920; J7050; J7620; 97530; 99291-25; J7030

== ENCOUNTER → 2018-12-16 | Outpatient (CLI) | payer MEDICARE ==
[~2018-12-16] MED LIST: 0.9 % SODIUM CHLORIDE 10 ML VIAL ONE; AMLO10TA8 PO; ASPI-630 PO; CEFP200T PO; CETI10TA16 PO; CHOL10003 PO; CLOT15CR5 TP; CYAN10005 PO; DONE10TA7 PO; FISH12002 PO; GABA600T7 PO; INSU100I13 SQ; IOHEXOL 300 MG/ML 50 ML VIAL. ONE; IPRA3AMP29 NEB; LIDOCAINE 1% PF 30 ML VIAL. ONE; LISI1TAB7 PO; PRED20TA PO; SIMV20TA3 PO; TAMS0.4C97 PO; TRAZ-120 PO; TRAZ-86 PO; methylPREDNISolone ACETATE 80 MG/ML VIAL. ONE
== END | disposition home or self-care (01) ==
LOC: SURG 12:17
PROVIDERS: ATTEND Anesthesiology Pain Medicine
DX: M54.16 Radiculopathy, lumbar region (principal); I12.9 Hypertensive chronic kidney disease with stage 1 through stage 4 chronic kidney disease, or unspecified chronic kidney disease; E11.22 Type 2 diabetes mellitus with diabetic chronic kidney disease; N18.3 Chronic kidney disease, stage 3 (moderate); Z88.8 Allergy status to other drugs, medicaments and biological substances; E11.42 Type 2 diabetes mellitus with diabetic polyneuropathy; E78.00 Pure hypercholesterolemia, unspecified; N40.1 Benign prostatic hyperplasia with lower urinary tract symptoms; N13.8 Other obstructive and reflux uropathy; J44.9 Chronic obstructive pulmonary disease, unspecified; Z87.01 Personal history of pneumonia (recurrent); Z86.19 Personal history of other infectious and parasitic diseases; F32.9 Major depressive disorder, single episode, unspecified; F43.22 Adjustment disorder with anxiety; M72.0 Palmar fascial fibromatosis [Dupuytren]; G47.30 Sleep apnea, unspecified; Z86.010 Personal history of colon polyps; M19.90 Unspecified osteoarthritis, unspecified site; E55.9 Vitamin D deficiency, unspecified; M48.061 Spinal stenosis, lumbar region without neurogenic claudication; Z90.49 Acquired absence of other specified parts of digestive tract; Z98.890 Other specified postprocedural states; Z79.82 Long term (current) use of aspirin; Z79.899 Other long term (current) drug therapy; Z72.89 Other problems related to lifestyle; Z79.84 Long term (current) use of oral hypoglycemic drugs
CPT/HCPCS: 62323; J1040; J2001; Q9967